=== PATIENT | male | born 1975 | race Caucasian/White ===

== ENCOUNTER 2022-07-31 16:28 | Inpatient (IN) | payer OTHER ==
--- NOTE | 2022-07-31 17:02 | ED ---
Fall HPI - General Chief Complaint: Fall Stated Complaint: left hip pain Time Seen by Provider: 07/31/22 16:38 Source: patient, family, EMS, RN notes reviewed Mode of arrival: EMS - History of Present Illness Initial Comments: This is a 47-year-old male who presents to the emergency department for a fall. States that he fell approximately 3 feet off of a combine and landed on asphalt. When he fell he landed on his left hip. Currently complaining of pain and cramping to the left hip and thigh. He was unable to move after the fall due to the hip pain and EMS was called. He was put in a c-collar by EMS, however he is unsure if he hit his head or not. Denies any loss of consciousness. He last ate at approximately 12 PM today. His only medication includes lisinopril and hypertension is his only medical problem. Denies any fevers, chills, sore throat, cough, dyspnea, chest pain, palpitations, abdominal pain, nausea, vomiting, diarrhea, back pain, or heada ches. MD Complaint: fall Fall From: from height (distance) (3 feet) Location: other (left hip) Context: tripped/slipped - Related Data Allergies Allergy/AdvReac Type Severity Reaction Status Date / Time No Known Allergies Allergy Verified 07/31/22 19:14 Review of Systems ROS Statement: Those systems with pertinent positive or pertinent negative responses have been documented in the HPI. ROS Other: All systems not noted in ROS Statement are negative. Past Medical History Past Medical History: Hypertension History of Any Multi-Drug Resistant Organisms: None Reported Past Surgical History: No Surgical Hx Reported Past Psychological History: No Psychological Hx Reported Smoking Status: Never smoker Past Alcohol Use History: Occasional Past Drug Use History: None Reported General Exam Limitations: no limitations General appearance: alert, in no apparent distress Head exam: Present: atraumatic, normocephalic, normal inspection Respiratory exam: Present: normal lung sounds bilaterally. Absent: respiratory distress, wheezes, rales, rhonchi, stridor Cardiovascular Exam: Present: regular rate, normal rhythm, normal heart sounds. Absent: systolic murmur, diastolic murmur, rubs, gallop, clicks GI/Abdominal exam: Present: soft, normal bowel sounds. Absent: distended, tenderness, guarding, rebound, rigid Extremities exam: Present: other (Minor tenderness to palpation of the lateral aspect of the left hip. No overlying erythema, swelling, or ecchymosis.) Neurological exam: Present: alert, oriented X3, CN II-XII intact Psychiatric exam: Present: normal affect, normal mood Skin exam: Present: warm, dry, intact, normal color. Absent: rash Course Vital Signs 07/31/22 16:38 Temperature 99.4 F Pulse Rate 70 Respiratory 16 Rate Blood Pressure 142/77 O2 Sat by Pulse 99 Oximetry Medical Decision Making - Medical Decision Making This is a 47-year-old male who presents to the emergency department for a fall. Computed tomography scan of the brain and C-spine obtained, my interpretation reveals no signs of cervical fractures or intracranial hemorrhage. X-ray of the left hip and femur obtained, and my interpretation of the x-ray of the left hip reveals an acute femoral neck fracture. The radiologist notes that there is varus angulation as well. The rvda master certified rv technician was able to identify the fracture, and contacted me regarding a chest x-ray, which she states is sometimes needed if the patient is going to the OR. I agreed and a chest x-ray was subsequently obtained. My interpretation of this reveals no evidence of localized consolidations, infiltrates, or rib fractures. I spoke with central control room operator orthopedics, Dr. Núñez. He advised that due to his age, this may need to be fixed tonight. Patient was kept NPO and baseline lab work was obtained with results pending at the time of admission. Patient admitted to orthopedics with medicine consult, surgical plan pending at this point. This case was discussed in detail with the attending ED physician. Presentation, findings, and treatment plan discussed in detail as well. - Lab Data Result diagrams: 07/31/22 19:10 Lab Results 07/31/22 Range/Units 19:10 WBC 20.4 H (3.8-10.6) k/uL RBC 4.34 (4.30-5.90) m/uL Hgb 13.8 (13.0-17.5) gm/dL Hct 40.6 (39.0-53.0) % MCV 93.6 (80.0-100.0) fL MCH 31.8 (25.0-35.0) pg MCHC 34.0 (31.0-37.0) g/dL RDW 12.3 (11.5-15.5) % Plt Count 344 (150-450) k/uL MPV 7.6 Neutrophils % 91 % Lymphocytes % 4 % Monocytes % 4 % Eosinophils % 0 % Basophils % 0 % Neutrophils # 18.6 H (1.3-7.7) k/uL Lymphocytes # 0.8 L (1.0-4.8) k/uL Monocytes # 0.8 (0-1.0) k/uL Eosinophils # 0.0 (0-0.7) k/uL Basophils # 0.1 (0-0.2) k/uL - Radiology Data Radiology results: report reviewed, image reviewed Disposition Clinical Impression: Fracture of femoral neck, left Disposition: ADMITTED IP TO THIS [facility] Referrals: None,Stated [Primary Care Provider] - 1-2 days
--- NOTE | 2022-07-31 17:24 | CT ---
EXAMINATION TYPE: CT brain cspine wo con CT DLP: 1468.6 mGycm, Automated exposure control for dose reduction was used. DATE OF EXAM: 07/31/2022 5:13 PM COMPARISON: None. CLINICAL INDICATION:Male, 47 years old with history of Fall, head injury; fell off ladder TECHNIQUE: Brain: Multiple axial CT images of the brain were obtained without IV contrast. Cspine: Axial CT images from the skull base to the inferior aspect of T2 we obtained without intraven ous contrast. Coronal and sagittal reformatted images were also reviewed. FINDINGS: Brain: Extra-axial spaces: No abnormal extra-axial fluid collections. Ventricular system: Within normal limits Cerebral parenchyma: No acute intraparenchymal hemorrhage or mass effect. The mccartney-white junction is well differentiated. Cerebellum: Unremarkable. Mass effect: No evidence of midline shift. Intracranial vasculature: Atherosclerotic calcifications of the intracranial vessels. Soft tissues: Normal. Calvarium/osseous structures: No depressed skull fracture. Paranasal sinuses and mastoid air cells: Clear. Visualized orbits: Orbital contents are intact. Cervical spine: Fracture: None. Osseous structures: Multilevel degenerative disc disease changes with endplate spurring and disc oste ophyte complex's. Nonfusion on the posterior arches of C6 and C7 Vertebral alignment: Within normal limits. Spinal canal/Neural Foramina: No evidence of significant spinal canal narrowing. No evidence for sign ificant neural foraminal stenosis. Neck soft tissues: Prevertebral soft tissues are within normal limits. Other: The airway is patent. The lung apices are clear. IMPRESSION: 1. No acute intracranial process. 2. No evidence of cervical spine fracture. 3. Mild multilevel degenerative disc disease.
[2022-07-31] MEDS ORDERED: KETOROLAC 15 MG/ML 1 ML VIAL IVP STA (17:41)
--- NOTE | 2022-07-31 18:13 | XR ---
EXAMINATION TYPE: XR femur LT, XR Hip Complete LT DATE OF EXAM: 07/31/2022 5:57 PM INDICATION: Patient age:Male; 47 years old; Reason for study: Pain from fall; COMPARISON: None TECHNIQUE: The left femur was examined in frontal lateral projections. The left hip was evaluated in frontal and lateral views. FINDINGS: Acute fracture of the left femoral neck with varus angulation. Soft tissues are unremarkable. No joaquim tional fractures identified. IMPRESSION: Acute left femoral neck fracture with varus angulation.
--- NOTE | 2022-07-31 18:15 | XR ---
EXAMINATION TYPE: XR chest 1V DATE OF EXAM: 07/31/2022 5:57 PM COMPARISON: None TECHNIQUE: XR chest 1V Portable AP radiograph of the chest. CLINICAL INDICATION:Male, 47 years old with history of fall, hip fx; FINDINGS: Lungs/Pleura: There is no evidence of pleural effusion, focal consolidation, or pneumothorax. Pulmonary vascularity: Unremarkable. Heart/mediastinum: Cardiomediastinal silhouette is unremarkable. Musculoskeletal: No acute osseous pathology. IMPRESSION: No acute cardiopulmonary disease/process.
[2022-07-31] MEDS ORDERED: ONDANSETRON 4 MG/2 ML VIAL IVP PRN (19:07)
[2022-07-31] MEDS ORDERED: HYDROmorphone 1 MG/ML 1 ML SYRINGE IVP PRN (19:07)
[2022-07-31] MEDS ORDERED: ACETAMINOPHEN TAB 325 MG TAB PO PRN (19:07)
[2022-07-31] MEDS ORDERED: NALOXONE 0.4 MG/ML 1 ML VIAL IV PRN (19:07)
[2022-07-31 19:17] LABS: Basophils # (A) 0.1 k/uL (0-0.2); Basophils % (A) 0 %; Eosinophils % (A) 0 %; HCT 40.6 % (39.0-53.0); HGB 13.8 gm/dL (13.0-17.5); Lymphocytes # (A) 0.8 k/uL (1.0-4.8); Lymphocytes % (A) 4 %; MCH 31.8 pg (25.0-35.0); MCV 93.6 fL (80.0-100.0); Mean Platelet Volume 7.6; Monocytes # (A) 0.8 k/uL (0-1.0); Monocytes % (A) 4 %; Neutrophils # (A) 18.6 k/uL (1.3-7.7); Neutrophils % (A) 91 %; Platelet Count 344 k/uL (150-450); RBC 4.34 m/uL (4.30-5.90); RDW 12.3 % (11.5-15.5); WBC 20.4 k/uL (3.8-10.6)
[2022-07-31 19:32] LABS: ALT 34 U/L (4-49); AST 34 U/L (17-59); African American GFR (CKD) >90 (>60 ml/min/1.73 sqM); Albumin 4.5 g/dL (3.5-5.0); Alkaline Phosphatase 79 U/L (38-126); Anion Gap 10 mmol/L; Blood Urea Nitrogen 18 mg/dL (9-20); Calcium 8.7 mg/dL (8.4-10.2); Carbon Dioxide 25 mmol/L (22-30); Chloride 101 mmol/L (98-107); Glucose 157 mg/dL (74-99); Non-African American GFR(CKD) >90 (>60 ml/min/1.73 sqM); Potassium 3.9 mmol/L (3.5-5.1); Sodium 136 mmol/L (137-145); Total Bilirubin 0.3 mg/dL (0.2-1.3); Total Protein 6.7 g/dL (6.3-8.2)
[2022-07-31 19:48] LABS: Partial Thromboplastin Time 24.7 sec (22.0-30.0); Prothrombin Time 10.1 sec (9.0-12.0)
--- NOTE | 2022-07-31 20:10 | CT ---
EXAMINATION TYPE: CT hip LT wo con CT DLP: 567.2 mGycm, Automated exposure control for dose reduction was used. DATE OF EXAM: 07/31/2022 7:50 PM COMPARISON: Radiograph same day. CLINICAL INDICATION:Male, 47 years old with history of Femoral neck fracture, Left femoral neck fx af ter fall TECHNIQUE: Axial images were obtained of the left hip . Additional coronal and sagittal reformatted images and soft tissue and bone window were obtained for review. 3-D reconstruction was created on a separate workstation. Contrast used: None Oral contrast used: None FINDINGS: Left femoral neck fracture with varus angulation. No intra-articular extension No additional fracture s identified. Mild small joint effusion is present. Small osseous fragments are seen in the medial as pect of the fracture site. Nutrient foramen noted in the medial aspect of the proximal femur diaphysi s. IMPRESSION: Left femoral neck fracture.
--- NOTE | 2022-07-31 21:34 | P.HPOR ---
History of Present Illness H&P Date: 07/31/22 Chief Complaint: Left hip pain status post fall Patient is seen and examined in the emergency room at bedside accompanied by his . 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 She denies any other injury. Denies any loss of consciousness denies any headache or neck pain or head injury. He only has pain in his left hip. Prior to this injury he did not have any pain at his left hip her legs. He had occasional back pain. He denies any new back pain now. He denies any numbness tingling his lower extremities. He admits to pain when he moves his left leg. He is normally very active man who does full work and heavy work on a daily basis. 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 He was at work when he had his fall today. He denies prior injuries to his any prior restrictions to his work before his injury today. After he fell he was unable to get up due to injury of his left hip. He presented to the emergency room and we're consult and in regards to left hip fracture. Review of Systems As stated per HPI. Denies any changes in bowel bladder function. Denies any new back pain. Denies any pain in his neck. Denies any headache loss consciousness. Denies any chest pain short of breath. Denies any changes in the upper extremities. He says he has pain when he tries to move his left leg. He can move his right leg well without any problems. He denies any nausea or vomiting. Past Medical History Past Medical History: Hypertension History of Any Multi-Drug Resistant Organisms: None Reported Past Surgical History: No Surgical Hx Reported Past Psychological History: No Psychological Hx Reported Smoking Status: Never smoker Past Alcohol Use History: Occasional Past Drug Use History: None Reported Medications and Allergies Home Medications Medication Instructions Recorded Confirmed Type lisinopriL [Zestril] 20 mg PO DAILY 07/31/22 07/31/22 History Allergies Allergy/AdvReac Type Severity Reaction Status Date / Time No Known Allergies Allergy Verified 07/31/22 19:52 Physical Examination Osteopathic Statement: *. No significant issues noted on an osteopathic structural exam other than those noted in the History and Physical/Consult. - Hip left Gait: other (At his left hip he has pain with internal/external rotation. He has good flexion and extension of his ankle foot and toes. He is able to move his knee slightly but when it affects his hip hurts. His right lower extremity is nontender to palpation range of motion.) Tenderness with palpation: lateral (His compartments are soft. He has good cap refill. Good dorsalis pedis and posterior tibial pulses. His abdomen soft nontender. Chest has good extension with deep inspiration. Arms have full active and passive range of motion. Neck and back are nontenderTo palpation. Good ROM at neck ) Results - Labs Labs: Abnormal Lab Results - Last 24 Hours (Table) 07/31/22 07/31/22 Range/Units 19:10 19:10 WBC 20.4 H (3.8-10.6) k/uL Neutrophils # 18.6 H (1.3-7.7) k/uL Lymphocytes # 0.8 L (1.0-4.8) k/uL Sodium 136 L (137-145) mmol/L Glucose 157 H (74-99) mg/dL H & H 07/31/22 Range/Units 19:10 Hgb 13.8 (13.0-17.5) gm/dL Hct 40.6 (39.0-53.0) % Coagulation 07/31/22 Range/Units 19:10 INR 1.0 (<1.2) Result Diagrams: 07/31/22 19:10 07/31/22 19:10 - Diagnostic results Hip x-ray: report reviewed, image reviewed Hip CT: report reviewed, image reviewed (X-rays and computed tomography scan of the left hip are reviewed. He has a femoral neck fracture with varus angulation and posterior angulation. There is some comminution posteriorly. 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 We discussed at length the nature of his injury. We discussed the historical significance of his injury in terms of being a a relatively young person with an acute femoral neck fracture. His fracture has some comminution and significant angulation. I would classify this approximate a Garden 3. The fracture pattern on computed tomography scan shows some comminution posteriorly with some extension toward the base of the femoral head. It would be quite difficult to get near anatomic alignment and position of the fracture for fixation and given the comminution and fracture pattern I think that there would be significantly high risk of early failure of fixation or likely malunion. I discussed this at length with the patient. We discussed the possibility that he can go on to heal well with internal fixation would be difficult to protect. We had also discussed the possibly of other surgical alternatives such as hip replacement. Hip replacement would give him the opportunity to weight-bear earlier and may afford him decrease risk of repeated surgeries and prolonged recovery. We discussed at length the possible risks, occasions of hip replacement surgery as well including the possibility of infection, possibility of dislocation, possibly of need for revision surgery or further surgery as well as possibility of persistent pain was discussed. The patient had all of his questions answered to the best my ability in a language that he can understand. He discussed the case with his friends and family over the phone as well. He has come to a conclusion that he would like to pursue hip replacement surgery rather than internal fixation of the fracture. I think this is a very reasonable decision given the fracture pattern and the injury. I discussed the case further with my colleagues and be we'll plan for the patient undergo hip replacement surgery for his left hip femoral neck fracture tomorrow. He will obtain medical clearance from the medicine service. We will have him nothing by mouth after midnight and keep him on bedrest until surgery. I discussed this with the house staff as well and they understand. We'll plan for surgery tomorrow. Time with Patient: Greater than 30
[2022-07-31] MEDS: HYDROmorphone 0.5 MG/0.5 ML SYRINGE IVP PRN (21:55)
[2022-08-01] MEDS: HYDROmorphone 0.5 MG/0.5 ML SYRINGE IVP PRN ×6 (03:03→22:08)
[2022-08-01] MEDS: SODIUM CHLORIDE 0.9% 1,000 ML IV SCH ×3 (07:28→17:58)
[2022-08-01] MEDS: lisinopriL 20 MG TAB PO SCH (08:18)
--- NOTE | 2022-08-01 10:33 | P.CONS ---
History of Present Illness - History of Present Illness This is a pleasant 47 years old male with no significant past medical history. He presents because of the fella from the ladder at his house while working with left hip fracture. Admitted under orthopedic team service and medical team consult was obtained for medical management. Patient was lying in bed comfortable he denies any other symptoms. He has chest pain or dyspnea or coughing, no vomiting or diarrhea or abdominal pain. No urinary complaints like dysuria or change in frequency. No headache or dizziness or weakness or numbness. His walking was normal prior to this happening and he denies rash or any other findings. He denies smoking alcohol or illicit drugs. Vitas looks stable patient had low-grade fever of 100.2 2:00 this morning. Labs reviewed, showing leukocytosis of 20.4 on admission. Rest of labs are unremarkable. Chest x-ray is negative for acute process CT of the head and cervical spine: No acute process and no fracture or dislocation Patient currently on 100 mL/h of normal saline, Dilaudid pain medication and cefazolin 1 Review of Systems Review of systems CONSTITUTIONAL: No fever, no malaise, no fatigue. HEENT: No recent visual problems or hearing problems. Denied any sore throat. CARDIOVASCULAR: No orthopnea, PND, no palpitations, no syncope. PULMONARY: No shortness of breath, no cough, no hemoptysis. GASTROINTESTINAL: No diarrhea, no nausea, no vomiting, no abdominal pain. Normoactive bowel sounds. NEUROLOGICAL: No headaches, no weakness, no numbness. HEMATOLOGICAL: Denies any bleeding or petechiae. GENITOURINARY: Denies any burning micturition, frequency, or urgency. MUSCULOSKELETAL/RHEUMATOLOGICAL: Denies any joint pain, swelling, or any muscle pain. ENDOCRINE: Denies any polyuria or polydipsia. Past Medical History Past Medical History: Hypertension History of Any Multi-Drug Resistant Organisms: None Reported Past Surgical History: No Surgical Hx Reported Past Psychological History: No Psychological Hx Reported Smoking Status: Never smoker Past Alcohol Use History: Occasional Past Drug Use History: None Reported Medications and Allergies Home Medications Medication Instructions Recorded Confirmed Type lisinopriL [Zestril] 20 mg PO DAILY 07/31/22 07/31/22 History Allergies Allergy/AdvReac Type Severity Reaction Status Date / Time No Known Allergies Allergy Verified 07/31/22 19:52 Physical Exam Vitals: Vital Signs Temp Pulse Pulse Resp BP BP Pulse Ox 08/01/22 07:42 98.2 F 71 18 117/72 97 08/01/22 02:00 100.2 F H 98 16 168/81 95 07/31/22 21:58 98.5 F 84 116/69 98 07/31/22 16:38 99.4 F 70 16 142/77 99 Intake and Output 07/31/22 08/01/22 08/01/22 22:59 06:59 14:59 Output Total 200 Balance -200 Output: Urine 200 Other: # Voids 0 Weight 86.183 kg GENERAL: The patient is alert and oriented x3, not in any acute distress. Well developed, well nourished. HEENT: Pupils are round and equally reacting to light. EOMI. No scleral icterus. No conjunctival pallor. Normocephalic, atraumatic. No pharyngeal erythema. No thyromegaly. CARDIOVASCULAR: S1 and S2 present. No murmurs, rubs, or gallops. PULMONARY: Chest is clear to auscultation, no wheezing or crackles. ABDOMEN: Soft, nontender, nondistended, normoactive bowel sounds. No palpable organomegaly. -MUSCULOSKELETAL: No joint swelling or deformity. Left hip tenderness EXTREMITIES: No cyanosis, clubbing, or pedal edema. NEUROLOGICAL: Gross neurological examination did not reveal any focal deficits. SKIN: No rashes. no petechiae. Results CBC & Chem 7: 07/31/22 19:10 07/31/22 19:10 Labs: Abnormal Lab Results - Last 24 Hours (Table) 07/31/22 07/31/22 Range/Units 19:10 19:10 WBC 20.4 H (3.8-10.6) k/uL Neutrophils # 18.6 H (1.3-7.7) k/uL Lymphocytes # 0.8 L (1.0-4.8) k/uL Sodium 136 L (137-145) mmol/L Glucose 157 H (74-99) mg/dL Assessment and Plan Assessment: Left hip fracture status post fall from the letter Mild fever and leukocytosis, rule out infection although could be also closed by trauma Plan: Continue with IV hydration Pain management and DVT prophylaxis per primary surgery team Repeat CBC and check procalcitonin. Check urine analysis Consult infectious disease team Labs and medication were reviewed.. Continue same treatment. Continue with symptomatic treatment. Resume home medication. Monitor labs and vitals. DVT and GI prophylaxis. Further recommendations as per clinical course of the patient DVT prophylaxis: deferred to surgery primary team GI prophylaxis: Pepcid PT/OT: Pending Prognosis is guarded Thank you for consulting us and we will follow up with
[2022-08-01 11:43] LABS: Basophils # (A) 0.1 k/uL (0-0.2); Basophils % (A) 0 %; Eosinophils # (A) 0.1 k/uL (0-0.7); Eosinophils % (A) 1 %; HCT 41.8 % (39.0-53.0); HGB 13.9 gm/dL (13.0-17.5); Lymphocytes # (A) 1.4 k/uL (1.0-4.8); Lymphocytes % (A) 11 %; MCHC 33.2 g/dL (31.0-37.0); MCV 96.2 fL (80.0-100.0); Mean Platelet Volume 7.6; Monocytes % (A) 8 %; Neutrophils # (A) 9.8 k/uL (1.3-7.7); Neutrophils % (A) 79 %; Platelet Count 339 k/uL (150-450); RBC 4.34 m/uL (4.30-5.90); RDW 11.9 % (11.5-15.5); WBC 12.5 k/uL (3.8-10.6)
--- NOTE | 2022-08-01 11:51 | P.PN ---
Progress Note - Text Progress Note Date: 08/01/22 The patient is seen and examined today at bedside. He denies any new complaints. He has pain in his left hip with motion. Denies any nausea vomiting. Denies any chest pain short of breath. He denies feeling sick or feverish On exam T-max was 100.1 but is coming down Abdomen soft nontender Extremities have sustained her/plan flexion and EHL intact. His thigh and calf are soft nontender. 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 Cardenas. We can discuss the nature of his injury and the risks, occasions alternatives and benefits in terms of treatment and his recovery. He has signed informed consent and plan to proceed with surgery this afternoon. He'll remain nothing by mouth.
[2022-08-01 12:05] LABS: Appearance,Urine Clear (Clear); Bilirubin,Urine Negative (Negative); Blood,Urine Negative (Negative); Color,Urine Yellow; Glucose,Urine (UA) Negative (Negative); Ketones,Urine Negative (Negative); Leukocyte Esterase,Urine Negative (Negative); Nitrite,Urine Negative (Negative); PH, Urine 7.5 (5.0-8.0); Protein,Urine Trace (Negative); Specific Gravity,Urine 1.019 (1.001-1.035); Urobilinogen,Urine <2.0 mg/dL (<2.0)
[2022-08-01] MEDS ORDERED: ROPIVACAINE/EPI/CLONIDINE/KET 50 ML SYRINGE MISCELLANE PRN (13:17)
[2022-08-01] MEDS ORDERED: TRANEXAMIC ACID 1,000 MG in SODIUM CHLORIDE 0.9% 100 ML IVPB ONE ×2 (13:17→13:25)
--- NOTE | 2022-08-01 17:42 | P.PN ---
Progress Note - Text Progress Note Date: 08/01/22 Briefly the patient is a very pleasant 47-year-old male who fell 3 feet off a ladder when he was climbing into a combine last evening. He was brought into the hospital and my partner Dr. Núñez was consulted regarding a displaced left femoral neck fracture. We discussed both emergent open reduction and internal fixation versus a total hip replacement. After hearing the pros and cons of both the patient requested proceeding with a total hip replacement. Dr. Núñez requested my assistance in performing a total hip replacement. I met with the patient this morning to discuss treatment options. We discussed both open reduction and internal fixation by an orthopedic trauma surgeon versus a total hip replacement. We discussed the pros and cons of both. Specifically the advantages of open reduction internal fixation would be salvage of his [place] hip and avoiding complications associated with a total hip replacement such as prosthetic dislocation, periprosthetic joint infection, and wear necessitating a revision. We also discussed the potential limitations in open reduction internal grinder al fixation including a relatively high risk of nonunion, malunion, prolonged weightbearing following surgery, and need for revision to a total hip replacement. We also discussed performing a total hip replacement. We discussed the advantages of this would be immediate weightbearing and likely one definitive surgery. The downsides include risks associated with a total hip replacement such as dislocation, infection, and need for revision. After hearing all of these the patient requested a total hip replacement as he has had a relatively young family member need a hip replacement. We tentatively planned for surgery this afternoon. As I was not on-call I had office today. I canceled my office early this afternoon in anticipation for surgery. I have been waiting for an OR for several hours. I have been ready to operate on this patient, but due to staffing issues and availability the hospital could not accommodate surgery this evening. This was relayed to the patient and his that I was and am available, but due to staffing and OR cases still going the hospital would not be able to get him into the operating room until several hours from now. We will plan on performing a total hip replacement tomorrow morning at 0700 as this will still be under 48 hours since his injury. He can eat dinner and will be nothing by mouth after midnight. In the interim the patient should remain strictly nonweightbearing on his left lower extremity.
[2022-08-01] MEDS: FAMOTIDINE 20 MG/2 ML VIAL IV SCH (20:24)
[2022-08-02] MEDS: HYDROmorphone 0.5 MG/0.5 ML SYRINGE IVP PRN ×2 (02:23→05:49)
[2022-08-02] MEDS ORDERED: IV FLUID CONTINUATION 1,000 ML IV ONE (06:03)
[2022-08-02] MEDS ORDERED: MIDAZOLAM 2 MG/2 ML VIAL IVP ONE (06:38)
[2022-08-02] MEDS ORDERED: LIDOCAINE 2% INJ 20 MG/ML (2 ML VIAL) ONE (06:50)
[2022-08-02] MEDS ORDERED: TRANEXAMIC ACID IN NACL,ISO-OS 1,000 MG/100 ML BAG ONE (06:50)
[2022-08-02] MEDS ORDERED: SUCCINYLCHOLINE CHLORIDE 200 MG/10 ML VIAL IV ONE (06:50)
[2022-08-02] MEDS ORDERED: PROPOFOL 10 MG/ML 20 ML VIAL IV ONE (06:50)
[2022-08-02] MEDS ORDERED: ROPIVACAINE 5 MG/ML 30 ML VIAL ONE (06:50)
[2022-08-02] MEDS ORDERED: MIDAZOLAM 2 MG/2 ML VIAL ONE (06:50)
[2022-08-02] MEDS ORDERED: fentaNYL (PF) 50 MCG/ML 2 ML AMP ONE (06:50)
[2022-08-02] MEDS ORDERED: ROCURONIUM 10 MG/ML (5 ML VIAL) IV ONE (06:50)
[2022-08-02] MEDS ORDERED: DEXAMETHASONE SOD PHOSPHATE 4 MG/ML 1 ML VIAL ONE (06:50)
[2022-08-02] MEDS ORDERED: NEOSTIGMINE 1 MG/ML 10 ML VIAL ONE (06:50)
[2022-08-02] MEDS ORDERED: GLYCOPYRROLATE 0.2 MG/ML 2 ML VIAL ONE (06:50)
[2022-08-02] MEDS ORDERED: ACETAMINOPHEN TAB 500 MG TAB ONE (06:51)
[2022-08-02] MEDS ORDERED: KETOROLAC 15 MG/ML 1 ML VIAL ONE (06:52)
[2022-08-02] MEDS ORDERED: ONDANSETRON 4 MG/2 ML VIAL IVP ONE (06:53)
[2022-08-02] MEDS ORDERED: DEXAMETHASONE SOD PHOSPHATE 4 MG/ML 1 ML VIAL IVP ONE (06:54)
[2022-08-02] MEDS ORDERED: ACETAMINOPHEN TAB 500 MG TAB PO ONE (06:55)
[2022-08-02] MEDS ORDERED: KETOROLAC 15 MG/ML 1 ML VIAL IVP ONE (06:55)
[2022-08-02] MEDS: FAMOTIDINE 20 MG/2 ML VIAL IV SCH ×2 (06:55→21:35)
[2022-08-02] MEDS ORDERED: GABAPENTIN 300 MG CAP PO ONE (06:55)
[2022-08-02] MEDS ORDERED: LACTATED RINGERS 1,000 ML IV ONE ×3 (07:03→09:10)
[2022-08-02] MEDS ORDERED: SODIUM CHLORIDE 0.9% 50 ML with ceFAZolin 2,000 MG IV ONE ×2 (07:07)
--- NOTE | 2022-08-02 07:57 | P.ANPRN ---
Procedure Note - Anesthesia - Nerve Block Performed Left Other (see comment) Single Time Out Performed: Yes (EDUARDO block) Date of Procedure: 08/02/22 Procedure Start Time: 06:37 Procedure Stop Time: 06:48 Location of Patient: PreOp Indication: Acute Post-Operative Pain, Requested by Surgeon Sedation Type: Sedate with meaningful contact maintained Preparation: Sterile Prep, Sterile Dressing Position: Supine Catheter: None Needle Types: Facet Needle Gauge: 20 Ultrasound used to visualize needle placement: Yes Ultrasound used to observe medication spread: Yes Injectate: 0.5% Ropivacaine (see comment for volume) (30 ml + decadron 4 mg) Narrative: Left sided EDUARDO block performed Blood Aspirated: No Pain Paresthesia on Injection Noted: No Resistance on Injection: Normal Image Stored and Saved: Yes Events: Uneventful and Well Tolerated
[2022-08-02] MEDS ORDERED: ROPIVACAINE/EPI/CLONIDINE/KET 50 ML SYRINGE MISCELLANE PRN (08:13)
[2022-08-02] MEDS: LACTATED RINGERS 1,000 ML IV ONE ×2 (09:10→11:29)
[2022-08-02] MEDS ORDERED: HYDROmorphone 1 MG/ML 1 ML SYRINGE IVP PRN (09:26)
[2022-08-02] MEDS ORDERED: HYDROcodone/APAP 5-325MG 1 EACH TAB PO PRN (09:26)
[2022-08-02] MEDS ORDERED: HYDROmorphone 0.5 MG/0.5 ML SYRINGE IVP PRN ×2 (09:26)
[2022-08-02] MEDS ORDERED: hydrOXYzine pamoate 25 MG CAP PO PRN (09:26)
--- NOTE | 2022-08-02 09:36 | FL ---
EXAMINATION TYPE: FL guidance operating room, XR Hip Limited LT DATE OF EXAM: 08/02/2022 CLINICAL HISTORY: Left hip fracture. TECHNIQUE: Fluoroscopy. Limited intraoperative views left hip. COMPARISON: CT left hip July 31, 2022. FINDINGS: Fluoroscopic guidance was provided during left hip replacement procedure performed by Dr. Núñez. A total of 42 seconds of fluoroscopic time was utilized during the procedure and 9 spot image s was acquired. Intraoperative images obtained show metallic hardware from total left hip arthroplasty satisfactory i n position after eventual placement. IMPRESSION: As Above.
--- NOTE | 2022-08-02 09:47 | P.OP ---
Date of Procedure: 08/02/22 Preoperative Diagnosis: Displaced left subcapital femoral neck fracture Postoperative Diagnosis: Same Procedure(s) Performed: Left Direct Anterior Total Hip Replacement Implants: 1. Grey Eagle Trident II Acetabular Cup, Size #54 2. Grey Eagle Insignia Size # 6 Femoral Stem, High Offset 3. Biolox delta femoral head, 36 mm, -2.5 neck Anesthesia: GETA, regional Surgeon: Sánchez Cardenas Steward [employer]etr[employer] #1: Sarahy Welsh Estimated Blood Loss (ml): 150 IV fluids (ml): 1,200 Pathology: other Condition: stable Disposition: PACU (Femoral head to pathology) Indications for Procedure: The patient is a very pleasant previously healthy 47-year-old male who sustained a fall resulting in a displaced left femoral neck fracture. He was initially admitted under the care of my partner Dr. Núñez. I met with the patient to discuss treatment options the morning following his admission We discussed both open reduction and internal fixation by an orthopedic trauma surgeon versus a total hip replacement. We discussed the pros and cons of both at length. Please see my prior progress note for this discussion. Ultimately the patient elected to go forward with a total hip replacement. We were set for surgery yes terday as I was available from 3 p.m. on, but due to staffing issues and OR cases the hospital was unable to accommodate his surgery yesterday. We brought the patient to the operating room this morning for surgery. I had a long discussion with the patient on the complications of a total hip replacement through a direct anterior approach. Risks discussed include, but are certainly not limited to, risks from anesthesia, superficial infection requiring local wound care or antibiotics, deep maddison-prosthetic joint infection and the treatment required to eradicate infection, intraoperative fracture, postoperative periprosthetic fracture, damage to local blood vessels or nerves particularly the lateral femoral cutaneous nerve, delayed wound healing requiring local wound care or possibly surgical debridement, hip dislocation, leg length discrepancy, soft tissue irritation around the total hip implant such as iliopsoas tendinitis or trochanteric bursitis, wear and osteolysis from the implants, squeaking or audible noises, groin pain, thigh pain, heterotopic ossification, stiffness, aseptic loosening of the implants, dissatisfaction with surgical outcome, need for revision surgery, DVT, PE, swelling of the operative extremity, acute coronary event, stroke, failure to thrive, and possibly loss of life or limb. The patient understands that while these are the most common complications after an elective hip replacement there are certainly other less common complications possible. They were given ample time to ask questions regarding the potential complications of a hip replacement. Following our discussion the patient provided their verbal and written consent to go forward with an elective total hip replacement. Operative Findings: Displaced subcapital femoral neck fracture with large hemarthrosis Description of Procedure: The patient was identified in the preoperative holding area and the correct hip was marked with my initials. I reviewed the procedure and consent with the patient. All of their questions were answered. The patient was then brought back into the operating room by anesthesia. While on the [facility] anesthesia was administered by the anesthesia team. Preoperative antibiotics and tranexamic acid were also given. After the patient was under anesthesia I examined their ankles to determine their preoperative leg length discrepancy. The skin over the anterior aspect of the hip was shaved to remove hair over the site of planned incision. Both feet and ankles were padded with webril and boots for the [place] were applied. The patient was then carefully transferred onto the [place] table. A perineal post was immediately placed. The arms were placed on arm holders and were well-padded. Both boots were secured to the spars on the [place] table. The patient was positioned so that the pelvis was centered over the post. Nonsterile drapes were applied. A timeout was performed identifying the correct patient, operative extremity, and procedure. At this point fluoroscopy was brought in to take preoperative images of the pelvis and operative hip. A metallic bar was used to create a bi-ischial line for use as a reference to leg length adjustments during the procedure. Global offset was also measured on both the operative and nonoperative leg. Fluoroscopy was then brought out and a pre-scrub using a chlorhexidine scrub brush was performed. The operative limb was then prepped and draped in the standard sterile fashion. An anterior longitudinal incision was made lateral and distal to the ASIS. The skin and subcutaneous tissues were incised sharply. The underlying tensor fascia was identified and incised in its midportion. The fascia was dissected free from the underlying muscle and the muscle belly was retracted. A blunt tipped cobra retractor was placed over the superior neck under the muscle fibers of the gluteus minimus. The deep enveloping fascia of the tensor was incised. The anterior leash of vessels were then identified and cauterized. The fascia between the rectus and the capsule was then incised and the pre-capsular fat was excised. A second Cobra was placed inferior to the neck. The interval between the rectus and iliocapsularis and the hip capsule was developed and a retractor was placed carefully over the anterior rim of the acetabulum. A T-shaped anterior capsulotomy was performed. The superior capsular leaflet was left in place in the inferior capsular flap was excised. The Cobra retractors were placed intracapsularly. On inspection there is a displaced subcapital femoral neck fracture and a large hemarthrosis. The femoral head was removed, passed off to the back table, and sized. The superior capsular flap was excised. Retractors were placed circumferentially exposing the acetabulum. We then circumferentially debrided the acetabulum free of labrum and osteophytes. The pulvinar was removed to fully visualize the cotyloid fossa. We then sequentially reamed to achieve peripheral fit and excellent bleeding subchondral bone. The socket was thoroughly irrigated. The acetabular component was impacted into the appropriate position using fluoroscopy to guide version, inclination, and depth of insertion taking care to have a comparable image of the AP pelvis to the standing image taken in the office. An excellent press-fit was achieved and final position was confirmed using fluoroscopy. The press fit was augmented with bony cancellus dome screws. The liner was then impacted into the socket. Attention was then turned to the femur. The remnant dorsal lateral capsule was excised. The short external rotators were visible and protected. A bone hook was used to confirm appropriate translation of the trochanter away from the acetabulum. The leg was then extended and adducted and the bone hook was used to elevate the femur for broaching. A box osteotome and blunt tipped canal sound was then utilized to gain access to the femoral canal. We then sequentially broached the femur in appropriate anteversion until excellent torsional stability was achieved. The neck cut was brought flush to the trial broach with a calcar planar. A trial neck and head were then placed onto the broach and the hip was atraumatically reduced under direct visualization. External rotation to 90 was performed to assess stability. Fluoroscopy was brought in. An AP and lateral fluoroscopic image of the proximal femur was obtained to assess position and fill of the trial broach. An AP of the pelvis was then obtained and matched to the preoperative image taken. A bi-ischial bar was then placed and measurements were taken to assess changes in length and offset. The hip was then carefully dislocated, the proximal femur was exposed, and the trial implants were removed. The wound and proximal femur was thoroughly irrigated using sterile saline and pulsatile lavage. The final femoral implant was dispensed and gently tapped into place generating an excellent press-fit. The trunnion was cleansed and the final head was tapped into place to engage the Rodrigez taper. The acetabulum was irrigated and visualized to be free of debris. The hip was carefully reduced. Stability was checked clinically with external rotation to 90 and there was no evidence of instability. Final fluoroscopic images were taken. The wound was then thoroughly irrigated and soaked with a dilute Betadine rinse for 3 minutes. 3 L of sterile saline was irrigated through the wound using pulsatile lavage. Local anesthetic cocktail was injected into the soft tissues around the surgical field. A deep drain was placed. The wound was then closed in layers. A sterile dressing was placed over the surgical incision and drain site. The addie pes were taken down and the patient was carefully transferred off of the [place] table. Following removal of the boots the leg lengths felt acceptable. The patient was then taken to recovery room having tolerated the procedure well. Sarahy Welsh PA-C was required as a skilled veterinary technician assistant for patient positioning, surgical exposure, retraction, placement of implants, and closure of the surgical wound. PLAN: The patient can weight-bear as tolerated on the operative extremity. 2 doses of postoperative antibiotics. DVT prophylaxis with aspirin 81 mg twice a day based on preoperative risk stratification. Physical therapy for gait training. Discontinue drain postoperative day #1 if output is less than 100 mL per shift.
[2022-08-02] MEDS: SODIUM CHLORIDE 0.9% 1,000 ML IV SCH ×3 (11:28→23:56)
[2022-08-02] MEDS: lisinopriL 20 MG TAB PO SCH (11:29)
[2022-08-02] MEDS: LACTATED RINGERS 1,000 ML IV SCH ×2 (11:31→21:05)
[2022-08-02 12:01] LABS: Basophils % (A) 0 %; Eosinophils % (A) 0 %; HCT 39.1 % (39.0-53.0); Lymphocytes # (A) 0.4 k/uL (1.0-4.8); Lymphocytes % (A) 2 %; MCH 32.3 pg (25.0-35.0); MCHC 33.3 g/dL (31.0-37.0); MCV 97.1 fL (80.0-100.0); Mean Platelet Volume 7.8; Monocytes # (A) 0.4 k/uL (0-1.0); Monocytes % (A) 2 %; Neutrophils # (A) 17.3 k/uL (1.3-7.7); Neutrophils % (A) 96 %; Platelet Count 271 k/uL (150-450); RBC 4.03 m/uL (4.30-5.90); RDW 12.1 % (11.5-15.5); WBC 18.1 k/uL (3.8-10.6)
[2022-08-02] MEDS: HYDROcodone/APAP 5-325MG 1 EACH TAB PO PRN (19:46)
[2022-08-02] MEDS ORDERED: SENNOSIDES-DOCUSATE SODIUM 1 EACH TAB PO SCH (21:00)
[2022-08-02] MEDS: ASPIRIN 81 MG PO SCH (21:35)
--- NOTE | 2022-08-02 22:05 | P.PN ---
Subjective This is a pleasant 47 years old male with no significant past medical history. He presents because of the fella from the ladder at his house while working with left hip fracture. Admitted under orthopedic team service and medical team consult was obtained for medical management. Patient was lying in bed comfortable he denies any other symptoms. He has chest pain or dyspnea or coughing, no vomiting or diarrhea or abdominal pain. No urinary complaints like dysuria or change in frequency. No headache or dizziness or weakness or numbness. His walking was normal prior to this happening and he denies rash or any other findings. He denies smoking alcohol or illicit drugs. Vitas looks stable patient had low-grade fever of 100.2 2:00 this morning. Labs reviewed, showing leukocytosis of 20.4 on admission. Rest of labs are unremarkable. Chest x-ray is negative for acute process CT of the head and cervical spine: No acute process and no fracture or dislocation Patient currently on 100 mL/h of normal saline, Dilaudid pain medication and cefazolin 1 08/02/2022 Patient is fracture and he is status post left total hip replacement done today, his postoperative day #0 Today is lying in bed comfortable denies any specific symptoms, no chest pain or dyspnea, no dysuria, no diarrhea or vomiting or abdominal pain, no rash. He had one episode of fever and subsided is been afebrile for more than 24 hours His leukocytosis was improving yesterday 20 down to 12 however today went up to 18 most likely secondary to surgery. We will keep monitoring. Monitor WBC and temperature. Objective - Vital Signs Vital signs: Vital Signs Temp 98.9 F 08/02/22 10:45 Pulse 71 08/02/22 11:45 Resp 16 08/02/22 10:13 BP 104/68 08/02/22 11:45 Pulse Ox 95 08/02/22 11:45 FiO2 Intake & Output 08/01/22 08/02/22 08/02/22 18:59 06:59 18:59 Intake Total 700 1550 Output Total 500 2100 150 Balance -500 -1400 1400 Weight 88 kg Intake: IV 700 1550 Output: Urine 500 2100 Estimated Blood Loss 150 - Exam GENERAL: The patient is alert and oriented x3, not in any acute distress. Well developed, well nourished. HEENT: Pupils are round and equally reacting to light. EOMI. No scleral icterus. No conjunctival pallor. Normocephalic, atraumatic. No pharyngeal erythema. No thyromegaly. CARDIOVASCULAR: S1 and S2 present. No murmurs, rubs, or gallops. PULMONARY: Chest is clear to auscultation, no wheezing or crackles. ABDOMEN: Soft, nontender, nondistended, normoactive bowel sounds. No palpable organomegaly. MUSCULOSKELETAL: No joint swelling or deformity. -EXTREMITIES: No cyanosis, clubbing, or pedal edema. Left hip is closed with dressing in place NEUROLOGICAL: Gross neurological examination did not reveal any focal deficits. SKIN: No rashes. no petechiae. - Labs CBC & Chem 7: 08/02/22 11:05 07/31/22 19:10 Labs: Abnormal Lab Results - Last 24 Hours (Table) 08/02/22 Range/Units 11:05 WBC 18.1 H (3.8-10.6) k/uL RBC 4.03 L (4.30-5.90) m/uL Neutrophils # 17.3 H (1.3-7.7) k/uL Lymphocytes # 0.4 L (1.0-4.8) k/uL Assessment and Plan Assessment: Left hip fracture status post fall from the letter Mild fever and leukocytosis, 1 episode of fever and resolved most likely reactive to his fracture and surgery. Plan: Continue with IV hydration Pain management and DVT prophylaxis per primary surgery team Patient does not have signs and symptoms of infection, his fever subsided and leukocytosis secondary to surgery, no indication for antibiotics for now as this more than benefits and we will keep monitoring Labs and medication were reviewed.. Continue same treatment. Continue with symptomatic treatment. Resume home medication. Monitor labs and vitals. DVT and GI prophylaxis. Further recommendations as per clinical course of the patient DVT prophylaxis: deferred to surgery primary team GI prophylaxis: Pepcid Prognosis is guarded Thank you for consulting us and we will follow up with
[2022-08-03] MEDS: LACTATED RINGERS 1,000 ML IV SCH (04:32)
[2022-08-03] MEDS: HYDROcodone/APAP 5-325MG 1 EACH TAB PO PRN ×2 (05:23→11:23)
[2022-08-03 08:22] VITALS: BP 100/63; PULSE 80; RESP 18; TEMP 98
--- NOTE | 2022-08-03 08:35 | P.DS ---
Providers Date of admission: 07/31/22 19:09 Expected date of discharge: 08/03/22 Attending physician: Sánchez Cardenas Consults: 07/31/22 19:09 Consult Physician Urgent Consulting Provider: Jona Graves Consult Reason/Comments: medical management Do you want consulting provider notified?: Yes Primary care physician: Stated None Hospital Course: This is a 47-year-old male who presented to [facility] emergency department with a left femoral neck fracture. Operative treatment options were discussed. After discussion and consideration patient elects to proceed with left direct anterior total hip arthroplasty for left femoral neck fracture. The patient is seen preoperatively by and cleared for surgery. The procedures performed without complication or sequelae. The patient is doing well on postoperative day#1. Labs and vital signs are stable on day of discharge. Patient examined bedside this morning. His pain is well-controlled at this time. He is currently ambulating with physical therapy. He would like to return home today. Patient is tolerating his diet well. He denies chest pain, shortness breath, nausea, vomiting. On examination, the patient is sitting up in bed in no apparent distress. He is alert and oriented 3. On inspection of his left hip, there is a clean, dry, intact OpSite dressing in place. No bleeding or drainage through the dressing. Motor and sensory function is intact of the left lower extremity. Femoral nerve function are intact. Left lower extremity were well-perfused. Calf is soft nontender to palpation. Patient is discharged home today, pending medical clearance. He should follow- up in the office in 2 weeks [facility]. Please see med rec for accurate list of discharge medications. Plan - Discharge Summary Discharge Rx Participant: Yes New Discharge Prescriptions: New Aspirin 81 mg PO BID 30 Days #60 tab Diclofenac Sodium [Voltaren] 75 mg PO BID 30 Days #60 tab Docusate [Colace] 100 mg PO BID #60 capsule HYDROcodone/APAP 5-325MG [[place] 5-325] 1 - 2 tab PO Q6HR PRN 7 Days #32 tab PRN Reason: Pain Omeprazole 40 mg PO DAILY 30 Days #30 cap No Action lisinopriL [Zestril] 20 mg PO DAILY Discharge Medication List lisinopriL [Zestril] 20 mg PO DAILY 07/31/22 [History] Aspirin 81 mg PO BID 30 Days #60 tab 08/03/22 [Rx] Diclofenac Sodium [Voltaren] 75 mg PO BID 30 Days #60 tab 08/03/22 [Rx] Docusate [Colace] 100 mg PO BID #60 capsule 08/03/22 [Rx] HYDROcodone/APAP 5-325MG [[place] 5-325] 1 - 2 tab PO Q6HR PRN 7 Days #32 tab 08/03/22 [Rx] Omeprazole 40 mg PO DAILY 30 Days #30 cap 08/03/22 [Rx] Follow up Appointment(s)/Referral(s): None,Stated [Primary Care Provider] - 1-2 days Sánchez Cardenas MD [Medical Doctor] - 2 Weeks Activity/Diet/Wound Care/Special Instructions: Weight bear to tolerance on operative extremity with a walker. Keep operative dressings intact until follow-up in the office. Call the office if dressings becomes saturated or fall off. May shower over dressing. Take pain medications as prescribed. Take aspirin 81mg BID x 4 weeks for blood clot prevention. Follow-up in the office in two weeks at [facility]. Call the office with any questions or concerns, Discharge Disposition: HOME SELF-CARE
[2022-08-03] MEDS: FAMOTIDINE 20 MG/2 ML VIAL IV SCH (08:57)
[2022-08-03] MEDS: lisinopriL 20 MG TAB PO SCH (08:57)
[2022-08-03] MEDS: ASPIRIN 81 MG PO SCH (08:57)
[2022-08-03] MEDS: SODIUM CHLORIDE 0.9% 1,000 ML IV SCH (08:57)
--- NOTE | 2022-08-03 09:54 | P.PN ---
Subjective Progress Note Date: 08/03/22 Overall the patient is doing well. He has slight discomfort in his thigh and some tightness but overall is doing very well. He states his pain is significantly improved since before surgery. Objective - Vital Signs Vital signs: Vital Signs Temp 98.0 F 08/03/22 08:00 Pulse 80 08/03/22 08:00 Resp 18 08/03/22 08:00 BP 100/63 08/03/22 08:00 Pulse Ox 100 08/03/22 08:00 FiO2 Intake & Output 08/02/22 08/03/22 08/03/22 18:59 06:59 18:59 Intake Total 3050 1780 Output Total 920 1140 Balance 2130 640 Intake: IV 1550 Intake, IV Titration 750 1300 Amount Lactated Ringers 1,000 ml 700 @ 100 mls/hr IV .Q10H TRISHA Rx#:[id number] Sodium Chloride 0.9% 1, 1200 000 ml @ 100 mls/hr IV . Q10H TRISHA Rx#:[id number] ceFAZolin 2 gm In Sodium 50 100 Chloride 0.9% 50 ml @ 100 mls/hr IVPB Q8H TRISHA Rx#: [id number] Oral 750 480 Output: Drainage 70 40 Left Hip 70 40 Urine 700 1100 Estimated Blood Loss 150 Other: # Voids 1 1 # Bowel Movements 0 - Exam The patient is sitting up at bedside. He is resting comfortably in a chair. A focused exam of the left lower extremity was conducted. On inspection his surgical dressings are intact with no drainage. His drain was removed. Femoral nerve function is intact. Thigh and calf are soft. Distally motor and sensory function are intact. - Labs CBC & Chem 7: 08/02/22 11:05 07/31/22 19:10 Labs: Abnormal Lab Results - Last 24 Hours (Table) 08/02/22 Range/Units 11:05 WBC 18.1 H (3.8-10.6) k/uL RBC 4.03 L (4.30-5.90) m/uL Neutrophils # 17.3 H (1.3-7.7) k/uL Lymphocytes # 0.4 L (1.0-4.8) k/uL Microbiology - Last 24 Hours (Table) 08/01/22 16:16 Blood Culture - Preliminary Blood No Growth after 24 hours Assessment and Plan Assessment: Postoperative day #1 status post left direct anterior total hip replacement for displaced femoral neck fracture Plan: The patient weight-bear as tolerated with a walker on his left leg. He should follow global hip precautions. His drain was pulled this morning. He is doing well at physical therapy. He can discharge home later this morning.
--- NOTE | 2022-08-03 13:10 | P.PN ---
Subjective Progress Note Date: 08/03/22 This is a pleasant 47 years old male with no significant past medical history. He presents because of the fella from the ladder at his house while working with left hip fracture. Admitted under orthopedic team service and medical team consult was obtained for medical management. Patient was lying in bed comfortable he denies any other symptoms. He has chest pain or dyspnea or coughing, no vomiting or diarrhea or abdominal pain. No urinary complaints like dysuria or change in frequency. No headache or dizziness or weakness or numbness. His walking was normal prior to this happening and he denies rash or any other findings. He denies smoking alcohol or illicit drugs. Vitas looks stable patient had low-grade fever of 100.2 2:00 this morning. Labs reviewed, showing leukocytosis of 20.4 on admission. Rest of labs are unremarkable. Chest x-ray is negative for acute process CT of the head and cervical spine: No acute process and no fracture or dislocation Patient currently on 100 mL/h of normal saline, Dilaudid pain medication and cefazolin 1 08/02/2022 Patient is fracture and he is status post left total hip replacement done today, his postoperative day #0 Today is lying in bed comfortable denies any specific symptoms, no chest pain or dyspnea, no dysuria, no diarrhea or vomiting or abdominal pain, no rash. He had one episode of fever and subsided is been afebrile for more than 24 hours His leukocytosis was improving yesterday 20 down to 12 however today went up to 18 most likely secondary to surgery. We will keep monitoring. Monitor WBC and temperature. 08/03. Patient seen and examined. Has been afebrile. Denies any acute issues. White count most likely reactive to surgery REVIEW OF SYSTEMS: CONSTITUTIONAL: No fever, no malaise,. CARDIOVASCULAR: No chest pain, no palpitations, no syncope. PULMONARY: No shortness of breath, no cough, GASTROINTESTINAL: No diarrhea, no nausea, no vomiting, no abdominal pain. NEUROLOGICAL: No headaches, no weakness, PHYSICAL EXAMINATION: GENERAL: The patient is alert and oriented x3, not in any acute distress. Well developed, well nourished. HEENT: Pupils are round and equally reacting to light. EOMI. No scleral icterus. No conjunctival pallor. Normocephalic, atraumatic. No pharyngeal erythema. No thyromegaly. CARDIOVASCULAR: S1 and S2 present. No murmurs, rubs, or gallops. PULMONARY: Chest is clear to auscultation, no wheezing or crackles. ABDOMEN: Soft, nontender, nondistended, normoactive bowel sounds. No palpable organomegaly. MUSCULOSKELETAL: Left Hip surgical incision seen EXTREMITIES: No cyanosis, clubbing, or pedal edema. NEUROLOGICAL: Gross neurological examination did not reveal any focal deficits. SKIN: No rashes. Assessment and plan Left hip fracture status post fall Postoperative day #1 status post left direct anterior total hip replacement for displaced femoral neck fracture Mild fever and leukocytosis, 1 episode of fever and resolved most likely cody ctive to his fracture and surgery. Plan: Monitor vital signs Monitor CBC Patient medicaly stable for discharge from medicine perspective Pain management and DVT prophylaxis per primary surgery team Objective - Vital Signs Vital signs: Vital Signs Temp 98.0 F 08/03/22 08:00 Pulse 80 08/03/22 08:00 Resp 18 08/03/22 08:00 BP 100/63 08/03/22 08:00 Pulse Ox 100 08/03/22 08:00 FiO2 Intake & Output 08/02/22 08/03/22 08/03/22 18:59 06:59 18:59 Intake Total 3050 1780 Output Total 920 1140 Balance 2130 640 Intake: IV 1550 Intake, IV Titration 750 1300 Amount Lactated Ringers 1,000 ml 700 @ 100 mls/hr IV .Q10H TRISHA Rx#:[id number] Sodium Chloride 0.9% 1, 1200 000 ml @ 100 mls/hr IV . Q10H TRISHA Rx#:[id number] ceFAZolin 2 gm In Sodium 50 100 Chloride 0.9% 50 ml @ 100 mls/hr IVPB Q8H TRISHA Rx#: [id number] Oral 750 480 Output: Drainage 70 40 Left Hip 70 40 Urine 700 1100 Estimated Blood Loss 150 Other: # Voids 1 1 # Bowel Movements 0 - Labs CBC & Chem 7: 08/02/22 11:05 07/31/22 19:10 Labs: Microbiology - Last 24 Hours (Table) 08/01/22 16:16 Blood Culture - Preliminary Blood No Growth after 24 hours
== END 2022-08-03 13:34 | disposition home health service (06) | DRG 522 ==
LOC: EC 16:28 → 4SSUR 19:09
PROVIDERS: ADMIT Orthopaedic Surgery; ATTEND Orthopaedic Surgery
PROC: 0SRB04A Replacement of Left Hip Joint with Ceramic on Polyethylene Synthetic Substitute, Uncemented, Open Approach (ICD-10-PCS; principal; 2022-08-02 07:00)
DX: S72.012A Unspecified intracapsular fracture of left femur, initial encounter for closed fracture (principal); D72.829 Elevated white blood cell count, unspecified; Z28.310 Unvaccinated for COVID-19; I10 Essential (primary) hypertension; M54.9 Dorsalgia, unspecified; R50.9 Fever, unspecified; R07.9 Chest pain, unspecified; Z79.899 Other long term (current) drug therapy; W30.0XXA Contact with combine harvester, initial encounter; Y92.79 Other farm location as the place of occurrence of the external cause
CPT/HCPCS: 36415; 64447; 70450; 71045; 72125; 73501; 73502; 76942; 80053; 81003; 84145; 85025; 85610; 85730; 86850; 86900; 86901; 87040; 88305; 88311; 96374; 99285